=== PATIENT | male | born 1945 | race Caucasian/White ===

== ENCOUNTER 2018-02-13 04:48 | Observation (INO) ==
--- NOTE | 2018-02-13 04:55 | ERNOTE ---
Dizziness ER Record Date of Service: 02/13/18 Presenting Symptoms: dizziness Time Seen by Provider: 02/13/18 04:51 Source: patient, EMS Exam Limitations: no limitations Allergies/Adverse Reactions: Allergies Allergy/AdvReac Type Severity Reaction Status Date / Time No Known Allergies Allergy Verified 02/13/18 04:55 Home Medications: HOME MEDICATIONS nitroglycerin 0.4 mg sublingual tablet 0.4 mg SL Q5-15M PRN #30 tab 11/10/17 [Last Taken Unknown] aspirin 81 mg tablet,delayed release 81 mg PO DAILY 11/18/17 [Last Taken Unknown] atorvastatin 40 mg tablet 40 mg PO DAILY #90 tab 01/29/18 [Last Taken Unknown] hydrochlorothiazide 25 mg tablet 25 mg PO DAILY #90 tab 01/29/18 [Last Taken Unknown] lisinopril 40 mg tablet 40 mg PO DAILY #90 tab 01/29/18 [Last Taken Unknown] metoprolol tartrate 100 mg tablet 100 mg PO BID #180 tab 01/29/18 [Last Taken Unknown] nifedipine ER 90 mg tablet,extended release 90 mg PO DAILY #90 tab 01/29/18 [Last Taken Unknown] tamsulosin 0.4 mg capsule 0.4 mg PO DAILY #90 cap 01/29/18 [Last Taken Unknown] - History of Present Illness Narrative: 72 year old male, states that he felt an electrical sensation, followed by shaking. His thought maybe he had a seizure. He is alert, oriented, coherent. Denies any complaints. He does not have history of seizures, however he has a history of CABG in [place]. He does not recall some of the event. He told me his states that he was "incoherent" for a short period of time. Denies any chest pain or dyspnea, no fevers at home, hes had occasional cough, he has not been coughing today. states that at 2 a.m., he started convulsing, then snoring. He was not responding to her. He woke up with shock like sensations, then fell asleep and was snoring, and EMS was dispatched. He came in via EMS. He does have LEA, uses a CPAP machine. He hasnt been sleeping great lately. He took a tums before bedtime, his stomach wasnt feeling right. Review of Systems - Review of Systems Constitutional: Present: See HPI EYE: Present: no symptoms reported ENT: Present: no symptoms reported Respiratory: Present: no symptoms reported Cardiology: Present: no symptoms reported Gastrointestinal/Abdominal: Present: no symptoms reported Genitourinary: Present: no symptoms reported Musculoskeletal: Present: no symptoms reported Skin: Present: no symptoms reported Neurological: Present: seizure Endocrine: Present: no symptoms reported Hematologic/Lymphatic: Present: no symptoms reported Psych: Present: no symptoms reported Medical History (Last Reviewed 02/13/18 @ 05:07 by Tammy Orta MD) LEA (obstructive sleep apnea) (Chronic) History of myocardial infarction (Resolved) History of kidney stones (Resolved) Hypertension (Chronic) Hyperlipidemia (Chronic) Surgical History: Surgical History (Last Reviewed 02/13/18 @ 05:07 by Tammy Orta MD) History of colonoscopy Onset Date: ~2013 History of hernia repair Onset Date: Unknown x2 History of quadruple bypass Onset Date: ~1999 History of tonsillectomy Onset Date: Unknown Status post surgical manipulation of knee joint Onset Date: ~03/28/16 [facility] [place] Family History: Family History (Last Reviewed 02/13/18 @ 05:07 by Tammy Orta MD) Grandfather Hypertension Father , age 85 Cancer Sister Cancer Mother , age 88/unknown/old age/joint pain No problems noted. Social History: Preferred Language Telugu Smoking Status Former smoker (Last Updated 12/05/17 @ 00:49 by Juan Manuel Patel DO) No Social History Section defined Physical Exam - Physical Exam General Appearance: Present: wd/wn, alert, no apparent distress Head Exam: Present: normal inspection, no evidence of injury Eye Exam: Normal inspection: bilateral, PERRL: bilateral, EOMI: bilateral Ears, Nose, Throat: Present: normal ENT inspection, normal pharynx Neck: Present: normal inspection, nontender Respiratory: Present: no respiratory distress, normal breath sounds, no accessory muscle use, chest nontender, lungs clear Cardiovascular/Chest: Present: regular rate, rhythm, no murmur, normal peripheral pulses Peripheral Pulses: N=norm/S=strong/W=weak/B=bound/A=absent: Carotid (R): Normal, Carotid (L): Normal Gastrointestinal/Abdominal: Present: normal bowel sounds, nontender, nondistended, soft, no organomegaly Back Exam: Present: normal inspection, normal range of motion, no CVA tenderness, no vertebral tenderness Extremity Exam: Present: normal inspection, non-tender, normal range of motion, no edema Neurological Exam: Present: alert, oriented, normal mood/affect, no motor/sensory deficits Skin Exam: Present: normal color, warm/dry Lymphatic Exam: Present: no adenopathy Progress - Results and Orders Patient's Lab Results:: I have reviewed the patient's lab results. Results and Orders: lactate 3.8 - Vital Signs Patient's Vital Signs:: I have reviewed the patient's vital signs. - EKG EKG: NSR EKG read: Reviewed by me EKG Comments: 85, left axis deviation, consider LAFB. No acute ST or T wave changes. - Progress/Reassessment Chief Complaint: Dizziness Plan - Plan Plan: discussed with Dr. Patel, will admit for obs Departure Clinical Impression: Seizure - Departure Disposition: Short Term Hospital Inpatient Condition: Fair Referrals: Juan Manuel Patel DO [Primary Care Provider] -
[2018-02-13 05:17] LABS: Hematocrit 43.6 % (42.0-52.0); Hemoglobin 14.5 gm/dL (13.5-18.0); Mean Cell Volume 87.6 fl (78-100); Mean Corpuscular Hemoglobin 29.1 pg (27-31); Mean Corpuscular Hgb Conc 33.3 g/dl (32-36); Mean Platelet Volume 9.9 fl (8-11.3); Neutrophil % 78.4 % (42-75.0); Platelet Count 215 K/mm3 (150-450); Red Blood Count 4.98 M/mm3 (4.7-6.0); Red Cell Distribution Width 14.1 % (11.5-14.0); White Blood Count 10.2 K/mm3 (4.0-10.5)
[2018-02-13 05:28] LABS: INR 1.09 INR (0.90-1.10); Partial Thrombolplastin Time 26.8 Seconds (24-32); Prothrombin Time (Patient) 10.9 Seconds (9.0-11.0)
[2018-02-13 05:36] LABS: ALT 21 U/L (19-67); AST 16 U/L (0-48); Albumin * 3.2 gm/dl (3.4-5.0); Alkaline Phosphatase * 88 U/L (50-170); Anion Gap 13.9 mmol/L (6.8-13.8); BUN/Creatinine Ratio 15.4 (9.0-21.6); Bilirubin, Total 0.8 mg/dL (0.0-1.1); Blood Urea Nitrogen 23 mg/dL (6-23); CK Total * 162 U/L (0-259); CRP 0.2 mg/dL (0.0-0.9); Ca. Corrected For Albumin 9.2 mg/dL (8.4-10.2); Calcium * 8.9 mg/dL (7.9-10.9); Carbon Dioxide 26.4 mmol/L (24-32.6); Chloride 105 mmol/L (97-106); Glucose * 148 mg/dL (70-110); Potassium 3.3 mmol/L (3.4-4.6); Sodium 142 mmol/L (132-142); Total Protein 6.7 gm/dL (6.2-8.2)
[2018-02-13 05:39] LABS: Troponin I Less than 0.017 ng/mL (0.00-0.10)
[2018-02-13] MEDS ORDERED: NORMAL SALINE 1,000 ML IV ONE (05:41)
[2018-02-13] MEDS ORDERED: POTASSIUM CHLORIDE 20 MEQ TABLET.SA PO ONE (05:51)
[2018-02-13 11:31] LABS: Urine Bilirubin Negative (NEGATIVE); Urine Blood 25 /ul (NEGATIVE); Urine Ketone Negative (NEGATIVE); Urine Nitrite Negative (NEGATIVE); Urine Protein 100 mg/dL (NEGATIVE); Urine Urobilinogen Normal (NORMAL)
[2018-02-13 11:48] LABS: Urine Appearance Clear (CLEAR); Urine Color Yellow; Urine RBC 0-5 /hpf (0-5); Urine WBC 0-5 /hpf (0-5)
[2018-02-13 11:49] LABS: Urine Bacteria TRACE
[2018-02-13] MEDS ORDERED: MAG HYDROX/ALUMINUM HYD/SIMETH 30 ML UDC PO PRN (11:55)
[2018-02-13 17:27] LABS: Hematocrit 42.2 % (42.0-52.0); Hemoglobin 14.2 gm/dL (13.5-18.0); Mean Corpuscular Hemoglobin 29.3 pg (27-31); Mean Corpuscular Hgb Conc 33.6 g/dl (32-36); Mean Platelet Volume 9.9 fl (8-11.3); Neutrophil # 8.1 K/mm3 (1.3-6.0); Neutrophil % 75.3 % (42-75.0); Platelet Count 199 K/mm3 (150-450); Red Blood Count 4.85 M/mm3 (4.7-6.0); Red Cell Distribution Width 14.2 % (11.5-14.0); White Blood Count 10.7 K/mm3 (4.0-10.5)
[2018-02-13 17:46] LABS: Albumin * 3.3 gm/dl (3.4-5.0); BUN/Creatinine Ratio 16.8 (9.0-21.6); Bilirubin, Total 0.9 mg/dL (0.0-1.1); CRP 1.5 mg/dL (0.0-0.9); Ca. Corrected For Albumin 9.1 mg/dL (8.4-10.2); Calcium * 8.9 mg/dL (7.9-10.9); Carbon Dioxide 26.6 mmol/L (24-32.6); Potassium 3.6 mmol/L (3.4-4.6); Total Protein 6.8 gm/dL (6.2-8.2)
[2018-02-13] MEDS: METOPROLOL TARTRATE 100 MG TABLET PO SCH (20:25)
[2018-02-13] MEDS ORDERED: ROSUVASTATIN CALCIUM 10 MG TABLET PO SCH (21:00)
--- NOTE | 2018-02-13 22:06 | HP ---
Chief Complaint - Chief Complaint Date of Service: 02/13/18 Time of Service: 14:00 Chief Complaint: Altered mental status, tremor, possible seizure History of Present Illness: Ken is a 72 yo male that reports waking up with shocking sensation in body, he was able to get up and go to the bathroom and returned to bed. His had noted him having shakes in his sleep and snoring. While awake he had periods of incoherence. EMS was called and he was brought to the [facility] ER. Upon arrival he has been feeling and acting his normal. He has a history of sleep apnea but after he lost weight a couple years ago he did not feel he needed his CPAP and was able to sleep without it. He reports that recently he has gained the weight back and he has not restarted his CPAP although his has been telling him that he is back to snoring. He denies any fever, chills, nausea, vomiting, chest pain, or shortness of breath. He has no numbness or weakness currently. Medical History (Last Updated 02/13/18 @ 07:13 by Marleny James RN) GI bleed rec'd 4 units RBC Knee pain cortisone injection Hyperlipidemia Hypertension LEA (obstructive sleep apnea) History of kidney stones History of myocardial infarction Surgical History: Surgical History (Last Updated 02/13/18 @ 07:12 by Marleny James RN) History of colonoscopy Onset Date: ~2013 History of hernia repair Onset Date: Unknown x2 History of quadruple bypass Onset Date: ~1999 History of tonsillectomy Onset Date: Unknown Family History: Family History (Last Updated 02/13/18 @ 07:15 by Marleny James RN) Grandfather Hypertension Father , age 85 Cancer Sister Cancer Mother , age 88/unknown/old age/joint pain No problems noted. Grandfather Syncopal episodes Social History: Patient Lives/Resources With Spouse Utilized Occupation retired Preferred Language Libyan Do you have any scientology or No cultural preference? Smoking Status Former smoker Have you smoked in the past 12 No months Do you dip or chew tobacco No Alcohol Use none Drug Use none (Last Updated 12/05/17 @ 00:49 by Juan Manuel Patel DO) No Social History Section defined Review Of Systems (GEN) - Review of Systems Generalized/Overall Review: Absent: Weakness, Chills, Fever EENTM: Present: No Symptoms Reported Respiratory: Absent: Cough, Shortness of Breath Cardiac: Absent: Chest Pain, Edema, Palpitations, Syncope Abdominal: Absent: Nausea, Vomiting Genitourinary: Present: No Symptoms Reported Musculoskeletal: Present: No Symptoms Reported Neurological: Present: Tingling, Tremors. Absent: Numbness, Weakness Skin: Present: No Symptoms Reported Endocrine: Present: No Symptoms Reported Immunizations: IMMUNIZATION HX Immunizations Up to Date Yes History of Influenza Vaccine Yes Hx Pneumococcal Vaccination Yes Allergies/Adverse Reactions: Allergies Allergy/AdvReac Type Severity Reaction Status Date / Time No Known Allergies Allergy Verified 02/13/18 07:14 Home Medications: HOME MEDICATIONS nitroglycerin 0.4 mg sublingual tablet 0.4 mg SL Q5-15M PRN #30 tab 11/10/17 [Last Taken Unknown] aspirin 81 mg tablet,delayed release 81 mg PO DAILY 11/18/17 [Last Taken Unknown] atorvastatin 40 mg tablet 40 mg PO DAILY #90 tab 01/29/18 [Last Taken Unknown] hydrochlorothiazide 25 mg tablet 25 mg PO DAILY #90 tab 01/29/18 [Last Taken Unknown] lisinopril 40 mg tablet 40 mg PO DAILY #90 tab 01/29/18 [Last Taken Unknown] metoprolol tartrate 100 mg tablet 100 mg PO BID #180 tab 01/29/18 [Last Taken Unknown] nifedipine ER 90 mg tablet,extended release 90 mg PO DAILY #90 tab 01/29/18 [Last Taken Unknown] tamsulosin 0.4 mg capsule 0.4 mg PO DAILY #90 cap 01/29/18 [Last Taken Unknown] Aspirin [Aspirin Enteric Coated] 81 mg PO DAILY tablet. 02/14/18 [Last Taken Unknown] Hydrochlorothiazide [Hydrodiuril] 25 mg PO DAILY@1100 tab 02/14/18 [Last Taken Unknown] Lisinopril [Zestril] 40 mg PO DAILY tab 02/14/18 [Last Taken Unknown] Mag Hydrox/Aluminum Hyd/Simeth [Maalox Plus Suspension] 10 ml PO QID PRN udc 02/14/18 [Last Taken Unknown] Metoprolol Tartrate [Lopressor] 100 mg PO BID tab 02/14/18 [Last Taken Unknown] NIFEdipine [Procardia Xl] 90 mg PO DAILY tab.sr.24h 02/14/18 [Last Taken Unknown] Tamsulosin HCl [Flomax] 0.4 mg PO DAILY@1800 cap.sr.24h 02/14/18 [Last Taken Unknown] Exam - Exam Vital Signs: Vital Signs - Last Taken Temp 37.4 C 02/13/18 19:50 Pulse 74 02/13/18 20:40 Resp 20 02/13/18 20:40 BP 165/83 H 02/13/18 20:25 Pulse Ox 94 02/13/18 20:40 Constitutional: Present: Alert, Oriented x3, Cooperative ENT Exam: Present: hearing grossly normal Eye Exam: bilateral eye: normal inspection Neck: Present: non-tender, normal inspection Respiratory: Present: lungs clear, normal breath sounds Cardiovascular/Chest: Present: regular rate, rhythm, no murmur Abdomen: Present: Normal bowel sounds, soft, nontender, nondistended Skin Exam: Present: normal color, warm/dry, no cyanosis Appearance: Present: appropriate appearance, appropriate insight Eye contact: Present: cooperative, good eye contact, normal speech Thoughts: Present: normal thought pattern, no apparent hallucination Diagnostic Studies: Abnormal Lab Results 02/13/18 02/13/18 02/13/18 Range/Units 05:10 05:10 05:10 WBC (4.0-10.5) K/mm3 RDW 14.1 H (11.5-14.0) % Immature Gran % (Auto) (0.001-0.429) % Immature Gran # (Auto) 0.04 H (0.000-0.0310) K/mm3 Neutrophils % 78.4 H (42-75.0) % Lymphocytes % 11.9 L (20-51) % Neutrophils # 8.0 H (1.3-6.0) K/mm3 Lymphocytes # 1.21 L (1.5-3.5) k/mm3 Plasma Sodium 143 H (130-142) mmol/L Potassium 3.3 L (3.4-4.6) mmol/L Anion Gap 13.9 H (6.8-13.8) mmol/L Creatinine 1.49 H (0.4-1.4) mg/dL Est GFR (Non-Af Amer) 49 L D (60-130) mL/min Random Glucose 148 H (70-110) mg/dL Lactic Acid, Venous 3.8 H* (0.4-2.0) mmol/L C-Reactive Prot, Quant (0.0-0.9) mg/dL Albumin 3.2 L (3.4-5.0) gm/dl Urine Protein (NEGATIVE) mg/dL Urine Blood (NEGATIVE) /ul Prot Sulfosalicylic Acd (0) mg/dL 02/13/18 02/13/18 02/13/18 Range/Units 11:22 17:26 17:26 WBC 10.7 H (4.0-10.5) K/mm3 RDW 14.2 H (11.5-14.0) % Immature Gran % (Auto) 0.50 H (0.001-0.429) % Immature Gran # (Auto) 0.05 H (0.000-0.0310) K/mm3 Neutrophils % 75.3 H (42-75.0) % Lymphocytes % 14.9 L (20-51) % Neutrophils # 8.1 H (1.3-6.0) K/mm3 Lymphocytes # (1.5-3.5) k/mm3 Plasma Sodium (130-142) mmol/L Potassium (3.4-4.6) mmol/L Anion Gap (6.8-13.8) mmol/L Creatinine (0.4-1.4) mg/dL Est GFR (Non-Af Amer) (60-130) mL/min Random Glucose (70-110) mg/dL Lactic Acid, Venous (0.4-2.0) mmol/L C-Reactive Prot, Quant 1.5 H (0.0-0.9) mg/dL Albumin 3.3 L (3.4-5.0) gm/dl Urine Protein 100 H (NEGATIVE) mg/dL Urine Blood 25 H (NEGATIVE) /ul Prot Sulfosalicylic Acd 2+ H (0) mg/dL Laboratory Results WBC 10.7 K/mm3 (4.0-10.5) H 02/13/18 17:26 RBC 4.85 M/mm3 (4.7-6.0) 02/13/18 17:26 Hgb 14.2 gm/dL (13.5-18.0) 02/13/18 17:26 Hct 42.2 % (42.0-52.0) 02/13/18 17:26 MCV 87.0 fl (78-100) 02/13/18 17:26 MCH 29.3 pg (27-31) 02/13/18 17:26 MCHC 33.6 g/dl (32-36) 02/13/18 17:26 RDW 14.2 % (11.5-14.0) H 02/13/18 17:26 Plt Count 199 K/mm3 (150-450) 02/13/18 17:26 MPV 9.9 fl (8-11.3) 02/13/18 17:26 Immature Gran % (Auto) 0.50 % (0.001-0.429) H 02/13/18 17:26 Immature Gran # (Auto) 0.05 K/mm3 (0.000-0.0310) H 02/13/18 17:26 Neutrophils % 75.3 % (42-75.0) H 02/13/18 17:26 Lymphocytes % 14.9 % (20-51) L 02/13/18 17:26 Monocytes % 8.5 % (0.0-9) 02/13/18 17:26 Eosinophils % 0.5 % (0.0-3.0) 02/13/18 17:26 Basophils % 0.3 % (0.0-1.0) 02/13/18 17:26 Nucleated RBC % 0.0 k/mm3 (0-1) 02/13/18 17:26 Neutrophils # 8.1 K/mm3 (1.3-6.0) H 02/13/18 17:26 Lymphocytes # 1.59 k/mm3 (1.5-3.5) 02/13/18 17:26 Monocytes # 0.9 k/mm3 (0.0-1.0) 02/13/18 17:26 Eosinophils # 0.1 k/mm3 (0.0-0.7) 02/13/18 17:26 Absolute Basophils 0.0 k/mm3 (0.0-0.1) 02/13/18 17:26 PT 10.9 Seconds (9.0-11.0) 02/13/18 05:10 INR (Anticoag Therapy) 1.09 INR (0.90-1.10) 02/13/18 05:10 PTT ([place]) 26.8 Seconds (24-32) 02/13/18 05:10 Sodium 139 mmol/L (132-142) 02/13/18 17:26 Plasma Sodium 139 mmol/L (130-142) 02/13/18 17:26 Potassium 3.6 mmol/L (3.4-4.6) 02/13/18 17:26 Chloride 104 mmol/L (97-106) 02/13/18 17:26 Carbon Dioxide 26.6 mmol/L (24-32.6) 02/13/18 17:26 Anion Gap 12.0 mmol/L (6.8-13.8) 02/13/18 17:26 BUN 19 mg/dL (6-23) 02/13/18 17:26 Creatinine 1.13 mg/dL (0.4-1.4) 02/13/18 17:26 Est GFR (Non-Af Amer) 67 mL/min (60-130) D 02/13/18 17:26 BUN/Creatinine Ratio 16.8 (9.0-21.6) 02/13/18 17:26 Random Glucose 94 mg/dL (70-110) D 02/13/18 17:26 Lactic Acid, Venous 1.4 mmol/L (0.4-2.0) 02/13/18 08:30 Calcium 8.9 mg/dL (7.9-10.9) 02/13/18 17:26 Calcium Adj for Albumin 9.1 mg/dL (8.4-10.2) 02/13/18 17:26 Total Bilirubin 0.9 mg/dL (0.0-1.1) 02/13/18 17:26 AST 30 U/L (0-48) 02/13/18 17:26 ALT 23 U/L (19-67) 02/13/18 17:26 Alkaline Phosphatase 95 U/L (50-170) 02/13/18 17:26 Creatine Kinase 162 U/L (0-259) 02/13/18 05:10 Troponin I Less than 0.017 ng/mL (0.00-0.10) 02/13/18 05:10 C-Reactive Prot, Quant 1.5 mg/dL (0.0-0.9) H 02/13/18 17:26 Total Protein 6.8 gm/dL (6.2-8.2) 02/13/18 17:26 Albumin 3.3 gm/dl (3.4-5.0) L 02/13/18 17:26 Urine Color Yellow 02/13/18 11:22 Urine Appearance Clear (CLEAR) 02/13/18 11:22 Urine pH 6.0 pH (5.0-7.0) 02/13/18 11:22 Ur Specific [place] 1.020 SP.GR. (1.005-1.030) 02/13/18 11:22 Urine Protein 100 mg/dL (NEGATIVE) H 02/13/18 11:22 Urine Glucose (UA) Negative mg/dL (NEGATIVE) 02/13/18 11:22 Urine Ketones Negative mg/dL (NEGATIVE) 02/13/18 11:22 Urine Blood 25 /ul (NEGATIVE) H 02/13/18 11:22 Urine Nitrate Negative (NEGATIVE) 02/13/18 11:22 Urine Bilirubin Negative mg/dl (NEGATIVE) 02/13/18 11:22 Prot Sulfosalicylic Acd 2+ mg/dL (0) H 02/13/18 11:22 Urine Urobilinogen Normal EU/dl (NORMAL) 02/13/18 11:22 Ur Leukocyte Esterase Negative /ul (NEGATIVE) 02/13/18 11:22 Urine RBC 0-5 /hpf (0-5) 02/13/18 11:22 Urine WBC 0-5 /hpf (0-5) 02/13/18 11:22 Ur Epithelial Cells 0-5 /hpf (0-5) 02/13/18 11:22 Urine Bacteria Trace (NONE) 02/13/18 11:22 Urine Culture Comments No culture indicated 02/13/18 11:22 Assessment/Plan - Narrative Narrative: Ken is a 72 yo male with an episode of altered mentation and tremor, possible convulsion this morning. Episode occurred during sleep and immediately after awakening. He has a history of sleep apnea and has not been using his CPAP. His episode may be hypoxia induced. Will monitor neurostatus. Will set him back up for using his CPAP as I believe this is the cause. Will obtain CT scan and check electrolytes. - Assessment/Plan (1) Altered mental status Problem: Acute (2) Sleep apnea Problem: Acute
[2018-02-14] MEDS: METOPROLOL TARTRATE 100 MG TABLET PO SCH (08:29)
[2018-02-14] MEDS ORDERED: LISINOPRIL 40 MG TABLET PO SCH (09:00)
[2018-02-14] MEDS ORDERED: NIFEdipine 30 MG TAB.SR.24H PO SCH (09:00)
[2018-02-14] MEDS ORDERED: ASPIRIN 81 MG TABLET.DR PO SCH (09:00)
[2018-02-14 10:05] LABS: Hematocrit 41.9 % (42.0-52.0); Hemoglobin 13.7 gm/dL (13.5-18.0); Mean Corpuscular Hemoglobin 29.1 pg (27-31); Mean Corpuscular Hgb Conc 32.7 g/dl (32-36); Mean Platelet Volume 10.2 fl (8-11.3); Neutrophil # 5.6 K/mm3 (1.3-6.0); Neutrophil % 71.3 % (42-75.0); Platelet Count 208 K/mm3 (150-450); Red Blood Count 4.71 M/mm3 (4.7-6.0); Red Cell Distribution Width 14.2 % (11.5-14.0); White Blood Count 7.9 K/mm3 (4.0-10.5)
[2018-02-14 10:16] LABS: Anion Gap 12.5 mmol/L (6.8-13.8); BUN/Creatinine Ratio 13.5 (9.0-21.6); Bilirubin, Total 1.1 mg/dL (0.0-1.1); Ca. Corrected For Albumin 9.4 mg/dL (8.4-10.2); Calcium * 8.9 mg/dL (7.9-10.9); Carbon Dioxide 29.9 mmol/L (24-32.6); Potassium 3.4 mmol/L (3.4-4.6); Total Protein 6.7 gm/dL (6.2-8.2)
--- NOTE | 2018-02-14 10:59 | DS ---
(1) Sleep apnea Problem: Acute (2) Altered mental status Problem: Acute Description of Stay: eKn is a 72 yo male admitted for altered mental status and potential seizure. He has a history of sleep apnea and was previously on CPAP. However, after losing weight he did not feel he needed it any longer. He does admit that over the last year he has gained the weight back and probably should be using his CPAP as his reports he is back to snoring and waking up at night. Evaluation in the ER and on the floor showed no significant abnormalities. Labs were within normal limits and a Head CT was negative for acute changes. There were chronic atrophy changes within the brain. I suspect this is mostly related to sleep apnea and have encouraged him to use his CPAP. While in the hospital we used an autopap and he did well and reports sleeping very well. We will give him the mask and tubing to use with his CPAP at home. The autopap staying at 10-11 for the majority of the night. I recommend he set his CPAP at home to 11 if he is able to adjust his machine. I will set him up a referral to neurology for further evaluation and treatment of his sleep apnea and to give their opinion on whether further testing needs completed such as EEG or Brain MRI. He is medi alethea stable to be discharged at this time. We have not seen any abnormal behaviors while he has been in the hospital. Procedures Performed: none Results and Findings: Lab Pending Results 02/13/18 05:10: WBC 10.2, RBC 4.98, Hgb 14.5, Hct 43.6, MCV 87.6, MCH 29.1, MCHC 33.3, RDW 14.1 H, Plt Count 215, MPV 9.9, Immature Gran % (Auto) 0.40, Immature Gran # (Auto) 0.04 H, Neutrophils % 78.4 H, Lymphocytes % 11.9 L, Monocytes % 7.7, Eosinophils % 1.1, Basophils % 0.5, Nucleated RBC % 0.0, Neutrophils # 8.0 H, Lymphocytes # 1.21 L, Monocytes # 0.8, Eosinophils # 0.1, Absolute Basophils 0.1 02/13/18 05:10: PT 10.9, INR (Anticoag Therapy) 1.09, PTT ([place]) 26.8 02/13/18 05:10: Sodium 142, Plasma Sodium 143 H, Potassium 3.3 L, Chloride 105, Carbon Dioxide 26.4, Anion Gap 13.9 H, BUN 23, Creatinine 1.49 H, Est GFR (Non- Af Amer) 49 L D, BUN/Creatinine Ratio 15.4, Random Glucose 148 H, Calcium 8.9, Calcium Adj for Albumin 9.2, Total Bilirubin 0.8, AST 16, ALT 21, Alkaline Phosphatase 88, Creatine Kinase 162, Troponin I Less than 0.017, C-Reactive Prot, Quant 0.2, Total Protein 6.7, Albumin 3.2 L 02/13/18 05:10: Lactic Acid, Venous 3.8 H* 02/13/18 08:30: Lactic Acid, Venous 1.4 02/13/18 11:22: Urine Color Yellow, Urine Appearance Clear, Urine pH 6.0, Ur Specific [place] 1.020, Urine Protein 100 H, Urine Glucose (UA) Negative, Urine Ketones Negative, Urine Blood 25 H, Urine Nitrate Negative, Urine Bilirubin Negative, Prot Sulfosalicylic Acd 2+ H, Urine Urobilinogen Normal, Ur Leukocyte Esterase Negative, Urine RBC 0-5, Urine WBC 0-5, Ur Epithelial Cells 0-5, Urine Bacteria Trace, Urine Culture Comments No culture indicated 02/13/18 17:26: WBC 10.7 H, RBC 4.85, Hgb 14.2, Hct 42.2, MCV 87.0, MCH 29.3, MCHC 33.6, RDW 14.2 H, Plt Count 199, MPV 9.9, Immature Gran % (Auto) 0.50 H, Immature Gran # (Auto) 0.05 H, Neutrophils % 75.3 H, Lymphocytes % 14.9 L, Monocytes % 8.5, Eosinophils % 0.5, Basophils % 0.3, Nucleated RBC % 0.0, Neutrophils # 8.1 H, Lymphocytes # 1.59, Monocytes # 0.9, Eosinophils # 0.1, Absolute Basophils 0.0 02/13/18 17:26: Sodium 139, Plasma Sodium 139, Potassium 3.6, Chloride 104, Carbon Dioxide 26.6, Anion Gap 12.0, BUN 19, Creatinine 1.13, Est GFR (Non-Af Amer) 67 D, BUN/Creatinine Ratio 16.8, Random Glucose 94 D, Calcium 8.9, Calcium Adj for Albumin 9.1, Total Bilirubin 0.9, AST 30, ALT 23, Alkaline P hosphatase 95, C-Reactive Prot, Quant 1.5 H, Total Protein 6.8, Albumin 3.3 L 02/14/18 09:39: WBC 7.9 D, RBC 4.71, Hgb 13.7, Hct 41.9 L, MCV 89.0, MCH 29.1, MCHC 32.7, RDW 14.2 H, Plt Count 208, MPV 10.2, Immature Gran % (Auto) 0.40, Immature Gran # (Auto) 0.03, Neutrophils % 71.3, Lymphocytes % 17.3 L, Monocytes % 9.0, Eosinophils % 1.5, Basophils % 0.5, Nucleated RBC % 0.0, Neutrophils # 5.6, Lymphocytes # 1.37 L, Monocytes # 0.7, Eosinophils # 0.1, Absolute Basophils 0.0 02/14/18 09:39: Sodium 141, Plasma Sodium 141, Potassium 3.4, Chloride 102, Carbon Dioxide 29.9, Anion Gap 12.5, BUN 15, Creatinine 1.11, Est GFR (Non-Af Amer) 69, BUN/Creatinine Ratio 13.5, Random Glucose 131 H D, Calcium 8.9, Calcium Adj for Albumin 9.4, Total Bilirubin 1.1, AST 33, ALT 21, Alkaline Phosphatase 88, Total Protein 6.7, Albumin 3.0 L Discharge Location: Home Disposition: Home self-care Condition: Good Discharge Activity: Activity as tolerated Discharge Diet: Low salt Referrals: Oswaldo Bundy MD [Consulting Physician] - (Next available at either [facility] or [facility]) Juan Manuel Patel DO [Primary Care Provider] - One Week Problem Oriented Discharge Instructions to Patient/Family: Sleep Apnea, [id number] Additional Patient Instructions (free text): -Please make TCM appointment unless retirement discharge. Thank you! Tatiana @ [phone]. Use CPAP every night. Complete Home Medications List: Complete Home Medication List: nitroglycerin 0.4 mg sublingual tablet 0.4 mg SL Q5-15M PRN #30 tab 11/10/17 aspirin 81 mg tablet,delayed release 81 mg PO DAILY 11/18/17 atorvastatin 40 mg tablet 40 mg PO DAILY #90 tab 01/29/18 hydrochlorothiazide 25 mg tablet 25 mg PO DAILY #90 tab 01/29/18 lisinopril 40 mg tablet 40 mg PO DAILY #90 tab 01/29/18 metoprolol tartrate 100 mg tablet 100 mg PO BID #180 tab 01/29/18 nifedipine ER 90 mg tablet,extended release 90 mg PO DAILY #90 tab 01/29/18 tamsulosin 0.4 mg capsule 0.4 mg PO DAILY #90 cap 01/29/18 Aspirin [Aspirin Enteric Coated] 81 mg PO DAILY tablet. 02/14/18 Hydrochlorothiazide [Hydrodiuril] 25 mg PO DAILY@1100 tab 02/14/18 Lisinopril [Zestril] 40 mg PO DAILY tab 02/14/18 Mag Hydrox/Aluminum Hyd/Simeth [Maalox Plus Suspension] 10 ml PO QID PRN udc 02/14/18 Metoprolol Tartrate [Lopressor] 100 mg PO BID tab 02/14/18 NIFEdipine [Procardia Xl] 90 mg PO DAILY tab.sr.24h 02/14/18 Tamsulosin HCl [Flomax] 0.4 mg PO DAILY@1800 cap.sr.24h 02/14/18
[2018-02-14] MEDS ORDERED: HYDROCHLOROTHIAZIDE 25 MG TABLET PO SCH (11:00)
[2018-02-14 11:20] VITALS: BP 151/80
[2018-02-14] MEDS ORDERED: TAMSULOSIN HCL 0.4 MG CAP.SR.24H PO SCH (18:00)
[2018-02-14] MEDS ORDERED: ROSUVASTATIN CALCIUM 20 MG TABLET PO SCH (21:00)
== END 2018-02-14 11:17 | disposition home or self-care (01) ==
LOC: ER 04:48 → MS 04:48
PROVIDERS: ADMIT Family Medicine; ATTEND Family Medicine
CPT/HCPCS: 36415; 70450; 80053; 81001; 82550; 83605; 84484; 85025; 85610; 85730; 86140; 93005; 94660; 96365; 99285; G0378